=== PATIENT | male | born 1950 | race Caucasian/White ===

== ENCOUNTER 2017-04-13 22:32 | Observation (INO) | payer OTHER ==
[2017-04-13] MEDS ORDERED: HYDROmorphONE/DILAUDID 1 MG/ML SYR IVP ONE (22:54)
[2017-04-13] MEDS ORDERED: NS 1,000 ML IV ONE (22:54)
[2017-04-13] MEDS ORDERED: ONDANSETRON 4 MG/2 ML VIAL IVP ONE (22:54)
--- NOTE | 2017-04-13 22:54 | EDPHY ---
H & P Stated Complaint: central abd pain x3 hours, nausea HPI/ROS: HPI CHIEF COMPLAINT: Nausea, abdominal pain and bloating HISTORY OF PRESENT ILLNESS: This patient very pleasant 66-year-old male no significant medical history does not take any daily medications he presents emergency room 3 hours of sudden onset nausea. Sensation that he wants to vomit. No dizziness no chest pain no shortness of breath. No headache. No neck pain. Persistent nausea feeling without vomiting. Denies diarrhea. He distally does tell me that his mid abdomen feels bloated and has some lower abdominal pain. Very mild 2/10. Reports he did not have any to eat. He took a nap woke up nauseous. Past Medical History: No medical history Past Surgical History: No surgical history Social History: Denies daily use of drugs alcohol tobacco products. Family History: Noncontributory ROS REVIEW OF SYSTEMS: A comprehensive 10 point review of systems is otherwise negative aside from elements mentioned in the history of present illness. Exam Constitutional appears nontoxic, triage nursing summary reviewed, vital signs reviewed, awake/alert. Eyes normal conjunctivae and sclera, EOMI, PERRLA. HENT normal inspection, atraumatic, moist mucus membranes, no epistaxis, neck supple/ no meningismus, no raccoon eyes. Respiratory clear to auscultation bilaterally, normal breath sounds, no respiratory distress, no wheezing. Cardiovascular rate normal, regular rhythm, no murmur, no edema, distal pulses normal. Gastrointestinal soft, non-tender, no rebound, no guarding, normal bowel sounds, no distension, no pulsatile mass. Genitourinary no CVA tenderness. Musculoskeletal no midline vertebral tenderness, full range of motion, no calf swelling, no tenderness of extremities, no meningismus, good pulses, neurovascularly intact. Skin pink, warm, & dry, no rash, skin atraumatic. Neurologic awake, alert and oriented x 3, AAOx3, moves all 4 extremities equally, motor intact, sensory intact, CN II-XII intact, normal cerebellar, normal vision, normal speech. Psychiatric normal mood/affect. Heme/Lymph/Immune no lymphadenopathy. 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 Chest x-ray. CT abdomen pelvis with IV contrast. Re-evaluation: This patient's CT scan is concerning for large gallbladder. Patient had an ultrasound is right upper quadrant shows pericholecystic fluid and sludge. He does have an elevated white blood cell count, elevated LFTs and bilirubin concerning for acute cholecystitis. Patient be given IV Invanz. Patient be consult to Dr. Garcia with General surgery for acute cholecystitis. Patient has nausea epigastric abdominal pain right upper quadrant. Patient be admitted to the hospital for acute cholecystitis. Source: Patient - Personal History Current Tetanus/Diphtheria Vaccine: No Current Tetanus Diphtheria and Acellular Pertussis (TDAP): No - Medical/Surgical History Hx Asthma: No Hx Chronic Respiratory Disease: No Hx Diabetes: No Hx Cardiac Disease: No Hx Renal Disease: No Hx Cirrhosis: No Hx Alcoholism: No Hx HIV/AIDS: No Hx Splenectomy or Spleen Trauma: No Other PMH: denies - Social History Smoking Status: Never smoked Constitutional: Initial Vital Signs Temperature (C) 36.5 C 04/13/17 22:34 Heart Rate 65 04/13/17 22:34 Respiratory Rate 18 04/13/17 22:34 Blood Pressure 151/99 H 04/13/17 22:34 O2 Sat (%) 97 04/13/17 22:34 O2 Delivery Mode Room Air Allergies/Adverse Reactions: No Known Allergies Allergy (Unverified 04/13/17 22:37) Home Medications: Medication Instructions Recorded Herbals/Supplements -Info Only 1 ea PO DAILY 04/14/17 Page-3 Fatty Acids [Fish Oil 1000 1,000 mg PO DAILY 04/14/17 mg (*)] Medical Decision Making - Diagnostics Imaging Results: Imaging Impressions Fluoroscopy 04/14/17 00:00 Impression: ERCP. Possible common hepatic duct stone. Abdomen Ultrasound 04/14/17 01:27 Impression: Negative pelvic sonogram. The study was performed as an emergency on-call case and discussed by telephone with Dr. Braeden Mari at 3:30 AM hrs. The final interpretation is concordant with the original communication. ADDENDUM: 04/14/17 0175 Impression: 1. Suspect acute cholecystitis. Gallbladder sludge and wall thickening with mild pericholecystic fluid. Borderline common bile duct dilatation at 6.0 mm. The study was performed as an emergency on-call case and discussed by telephone with Dr. Braeden Mari at 2:00 AM hrs. The final interpretation is concordant with the original communication. - Data Points Laboratory Results: Laboratory Results 04/13/17 23:07 04/13/17 23:07 Medications Given: Sodium Chloride (Ns) 1,000 mls @ 100 mls/hr IV CONT GELY Stop: 10/11/17 04:13 Last Admin: 04/14/17 16:10 Dose: 1,000 mls Ondansetron HCl (Zofran) 4 mg IVP Q4 PRN PRN Reason: Nausea/Vomiting, Can't Take PO Stop: 10/11/17 04:40 Last Admin: 04/14/17 10:33 Dose: 4 mg Discontinued Medications Hydromorphone HCl (Dilaudid) 0.5 mg IVP EDNOW ONE Stop: 04/13/17 22:55 Last Admin: 04/14/17 07:31 Dose: Not Given Sodium Chloride (Ns) 1,000 mls @ 0 mls/hr IV EDNOW ONE; Wide Open PRN Reason: Protocol Stop: 04/13/17 22:55 Last Admin: 04/13/17 23:08 Dose: 1,000 mls Ertapenem 1 gm/ Sodium (Chloride) 100 mls @ 200 mls/hr IV EDNOW ONE Stop: 04/14/17 02:59 Last Admin: 04/14/17 07:31 Dose: Not Given Lactated Ringer's (Lr) 1,000 mls @ 0 mls/hr IV ONCE ONE PRN Reason: As Directed Stop: 04/14/17 12:26 Last Admin: 04/14/17 15:28 Dose: Not Given Indomethacin (Indocin Rectal) 100 mg CA ONCALL ONE Stop: 04/14/17 13:01 Last Admin: 04/14/17 15:28 Dose: Not Given Ondansetron HCl (Zofran) 4 mg IVP EDNOW ONE Stop: 04/13/17 22:55 Last Admin: 04/13/17 23:08 Dose: 4 mg Ondansetron HCl (Zofran) 2 - 4 mg IVP Q10M PRN PRN Reason: PACU, Nausea/Vomiting Stop: 04/14/17 14:44 Last Admin: 04/14/17 14:14 Dose: 4 mg Promethazine HCl (Phenergan) 6.25 mg IVP ONCE ONE Stop: 04/13/17 23:31 Last Admin: 04/14/17 00:21 Dose: 6.25 mg Promethazine HCl (Phenergan) 6.25 - 12.5 mg IVP Q5M PRN PRN Reason: PACUNausea/Vomiting, Unable PO Stop: 04/14/17 14:44 Last Admin: 04/14/17 14:36 Dose: 6.25 mg Departure - Departure Disposition: [facility] Inpatient Acute Clinical Impression: Acute cholecystitis Condition: Fair
[2017-04-13 23:26] LABS: INR 1.04 (0.83-1.16); PROTIME(PATIENT) 13.5 SEC (12.0-15.0)
[2017-04-13 23:27] LABS: COLOR YELLOW; LEUKOCYTE ESTERASE,URINE NEGATIVE (NEGATIVE); NITRITE,URINE NEGATIVE (NEGATIVE)
[2017-04-13 23:27] LABS: APTT 26.5 SEC (23.0-38.0)
[2017-04-13] MEDS ORDERED: PROMETHAZINE HCL 25 MG/ML INJ IVP ONE (23:30)
--- NOTE | 2017-04-13 23:30 | CPEKG ---
Heart Rate: 67 RR Interval: 896 P-R Interval: 160 QRSD Interval: 110 QT Interval: 420 QTC Interval: 444 P [place]: 73 QRS [place]: 30 T Wave [place]: 21 EKG Severity - ABNORMAL ECG - EKG Impression: SINUS RHYTHM EKG Impression: NONSPECIFIC INTRAVENTRICULAR CONDUCTION DELAY Electronically Signed By: Aravind Arellano 14-Apr-2017 07:17:35
[2017-04-13 23:33] LABS: ALANINE AMINOTRANSFERASE 164 IU/L (21-72); ALBUMIN 4.5 g/dL (3.5-5.0); ALKALINE PHOSPHATASE 108 IU/L (38-126); ANION GAP 13 mEq/L (8-16); ASPARTATE AMINOTRANSFERASE 257 IU/L (17-59); BILIRUBIN,TOTAL 3.8 mg/dL (0.1-1.4); BILIRUBIN-CONJUGATED 1.6 mg/dL (0.0-0.5); BILIRUBIN-UNCONJUGATED 2.2 mg/dL (0.0-1.1); CALCIUM 9.9 mg/dL (8.5-10.4); CARBON DIOXIDE 28 mEq/l (22-31); CHLORIDE 98 mEq/L (97-110); GLOMERULAR FILTRATION RATE > 60; GLUCOSE 154 mg/dL (70-100); POTASSIUM 4.4 mEq/L (3.5-5.2); SODIUM 139 mEq/L (134-144); TOTAL PROTEIN 7.4 g/dL (6.3-8.2)
[2017-04-13] MEDS ORDERED: IOPAMIDOL (ISOVUE-300) 100 ML BTL ONE (23:37)
[2017-04-13 23:39] LABS: AMORPHOUS PRESENT /hpf (NONE-1+); RBC,URINE 15-25 /hpf (0-3)
[2017-04-13 23:40] LABS: WBC,URINE NONE SEEN /hpf (0-3)
[2017-04-13 23:46] LABS: TROPONIN I < 0.012 ng/mL (0.000-0.034)
[2017-04-13 23:47] LABS: % IMMATURE GRANULYOCYTES 0.7 % (0.0-1.1); ABSOLUTE IMMATURE GRANULOCYTES 0.12 10^3/uL (0.00-0.10); ADD DIFF? NO; ADD MORPH? NO; ADD SCAN? NO; ATYPICAL LYMPHOCYTE FLAG 0 (0-99); FRAGMENT RBC FLAG 0 (0-99); HEMATOCRIT 50.9 % (40.0-51.0); HEMOGLOBIN 18.6 g/dL (13.7-17.5); LEFT SHIFT FLG 10 (0-99); LIPEMIA HEMOLYSIS FLAG 90 (0-99); MEAN CELL HEMOGLOBIN 32.6 pg (27.9-34.1); MEAN CELL HEMOGLOBIN CONCENTR. 36.5 g/dL (32.4-36.7); MEAN CELL VOLUME 89.3 fL (81.5-99.8); PLATELET CLUMPS FLAG 0 (0-99); PLATELET COUNT 167 10^3/uL (150-400); RED CELL DISTRIBUTION WIDTH 13.4 % (11.5-15.2)
[2017-04-14] MEDS ORDERED: PROMETHAZINE HCL 25 MG/ML INJ ONE ×2 (01:12→14:25)
[2017-04-14] MEDS ORDERED: ERTAPENEM 1 GM in NS 100 ML IV ONE (02:30)
[2017-04-14] MEDS ORDERED: NS 1,000 ML IV SCH (04:14)
--- NOTE | 2017-04-14 04:38 | GHP ---
[f rep st] HISTORY AND PHYSICAL DATE OF ADMISSION: 04/13/2017 CHIEF COMPLAINT: Choledocholithiasis. HISTORY OF PRESENT ILLNESS: A 66-year-old man who presented to the emergency room due to nausea and then vomiting. He has never had these symptoms before. The pain was so severe he asked his neighbor to drive him to the ER. In the ER , he had a CT scan obtained of his abdomen and pelvis that showed a thickened distal esophagus and thickened gallbladder with pericholecystic fluid. He had a followup ultrasound that showed thickened gallbladder with pericholecystic fluid. His laboratory work was significant for a white count of 17,000 and an elevated bilirubin. Note, the computers are on downtime at this point so reports are available through the ER physician. PAST MEDICAL HISTORY: None. PAST SURGICAL HISTORY: None. SOCIAL HISTORY: He is very healthy. Denies tobacco or alcohol use. He is in a housing center for over [place]. FAMILY HISTORY: No family history of gallstone. REVIEW OF SYSTEMS: A 10-point review of systems is negative except per HPI. PHYSICAL EXAMINATION: VITALS: Reviewed. GENERAL: Pleasant, well-nourished, well-groomed man sitting up on gurney and at bedside. HEENT: Normocephalic. No gross hearing deficits. Mucous membranes moist. Pupils equal and round. No scleral icterus. LUNGS: Clear to auscultation bilaterally. No increased work of breathing. CARDIAC: Regular rate. No peripheral edema. ABDOMEN: Bowel sounds present. Soft and mildly tender. There is no rebound tenderness and no abdominal incisions. SKIN: Warm and dry. MUSCULOSKELETAL: Normal nails. PSYCH: Mood and affect normal. NEURO: Grossly intact. IMPRESSION AND PLAN: The patient is a 66-year-old with choledocholithiasis admitted to the hospital. He has been given Invanz in the ER. Will recheck his labs in the morning. If possible, we may need to consult GI to consider ERCP/EGD. We may need to discuss laparoscopic cholecystectomy. The patient would like to think about a cholecystectomy as he has never had any medical problems. He is "not eager to lose his gallbladder". He asked if I had ever seen any alternatives work and I reported that he is able to have antibiotics and if he improves, he can wait and see if this happens again. We also discussed the risk that sometimes people can actually develop infection in their blood streams from waiting as well. He asked what I thought he should do and I repeated that I thought we should repeat labs in the morning and either proceed with ERCP and/or laparoscopic cholecystectomy. He was also concerned about insurance and I informed him that he came in through the emergency room and that admission was necessary. I put him down as observation at this point. Repeat labs and repeat discussion in am /[id number]/MODL MTDD
[2017-04-14] MEDS ORDERED: ACETAMINOPHEN 325 MG TAB PO PRN (04:41)
[2017-04-14] MEDS ORDERED: ONDANSETRON 4 MG/2 ML VIAL IVP PRN ×2 (04:41→13:44)
[2017-04-14 05:30] LABS: % IMMATURE GRANULYOCYTES 0.4 % (0.0-1.1); ABSOLUTE IMMATURE GRANULOCYTES 0.06 10^3/uL (0.00-0.10); ADD DIFF? NO; ADD MORPH? NO; ADD SCAN? NO; ATYPICAL LYMPHOCYTE FLAG 0 (0-99); FRAGMENT RBC FLAG 0 (0-99); HEMATOCRIT 44.7 % (40.0-51.0); HEMOGLOBIN 16.3 g/dL (13.7-17.5); LEFT SHIFT FLG 0 (0-99); LIPEMIA HEMOLYSIS FLAG 90 (0-99); MEAN CELL HEMOGLOBIN 32.3 pg (27.9-34.1); MEAN CELL HEMOGLOBIN CONCENTR. 36.5 g/dL (32.4-36.7); MEAN CELL VOLUME 88.7 fL (81.5-99.8); PLATELET CLUMPS FLAG 0 (0-99); PLATELET COUNT 154 10^3/uL (150-400); RED BLOOD CELL COUNT 5.04 10^6/uL (4.40-6.38); RED CELL DISTRIBUTION WIDTH 13.2 % (11.5-15.2)
[2017-04-14 06:04] LABS: ALANINE AMINOTRANSFERASE 363 IU/L (21-72); ALBUMIN 3.1 g/dL (3.5-5.0); ALKALINE PHOSPHATASE 80 IU/L (38-126); ANION GAP 8 mEq/L (8-16); ASPARTATE AMINOTRANSFERASE 420 IU/L (17-59); BILIRUBIN,TOTAL 5.6 mg/dL (0.1-1.4); CALCIUM 8.7 mg/dL (8.5-10.4); CARBON DIOXIDE 26 mEq/l (22-31); CHLORIDE 103 mEq/L (97-110); GLOMERULAR FILTRATION RATE > 60; GLUCOSE 122 mg/dL (70-100); POTASSIUM 4.1 mEq/L (3.5-5.2); SODIUM 137 mEq/L (134-144); TOTAL PROTEIN 5.6 g/dL (6.3-8.2)
[2017-04-14 06:12] LABS: BILIRUBIN-CONJUGATED 2.9 mg/dL (0.0-0.5); BILIRUBIN-UNCONJUGATED 2.7 mg/dL (0.0-1.1)
--- NOTE | 2017-04-14 08:39 | SOAPPROG ---
<Ami Montelongo - Last Filed: 04/14/17 08:40> SOAP Progress Note Assessment/Plan: Assessment: 66yo M admitted with choledocholithiasis Total bilirubin climbing ERCP today by Dr. Hogan Clear liquids after ERCP, then NPO after midnight Marbella pennington likely tomorrow Seen c Dr. Garcia S: severe hiccups this morning. Did no sleep well overnight O: laying in bed, uncomfortable, hiccuping frequently No increased WOB. CTAB anteriorly RRR Abd TTP, no rebound or guarding. +BS Objective: Vital Signs Temp Pulse Resp BP Pulse Ox 36.5 C 64 16 138/91 H 98 04/13/17 22:34 04/14/17 00:00 04/14/17 00:00 04/14/17 00:00 04/14/17 00:00 Laboratory Results 04/14/17 05:24 04/14/17 05:24 PT 13.5 SEC (12.0-15.0) 04/13/17 23:07 INR 1.04 (0.83-1.16) 04/13/17 23:07 ICD10 Worksheet Patient Problems: Problems Problem Status Onset Choledocholithiasis Acute <Trisha Garcia S - Last Filed: 04/14/17 14:39> SOAP Progress Note Assessment/Plan: Assessment: Bile duct cleared by Dr. Hogan. Marbella pennington in am. Risks and benefits discussed Plan: 04/14/17 14:38 Objective: Vital Signs Temp Pulse Resp BP Pulse Ox 36.6 C 65 15 131/88 H 100 04/14/17 14:01 04/14/17 13:05 04/14/17 14:01 04/14/17 14:01 04/14/17 14:01 Laboratory Results 04/14/17 05:24 04/14/17 05:24 PT 13.5 SEC (12.0-15.0) 04/13/17 23:07 INR 1.04 (0.83-1.16) 04/13/17 23:07 ICD10 Worksheet - ICD10 Problem Qualifiers (1) Choledocholithiasis
[2017-04-14] MEDS ORDERED: IOTHALAMATE MEG (CONRAY) 50 ML VIAL IV ONE (11:43)
[2017-04-14] MEDS ORDERED: LR 1,000 ML IV ONE (12:25)
--- NOTE | 2017-04-14 12:59 | PDANEPAE ---
ANE History of Present Illness here for ERCP ANE Past Medical History - Cardiovascular History Hx Hypertension: No Hx Arrhythmias: No Hx Chest Pain: No Hx Coronary Artery / Peripheral Vascular Disease: No Hx CHF / Valvular Disease: No Hx Palpitations: No - Pulmonary History Hx COPD: No Hx Asthma/Reactive Airway Disease: No Hx Recent Upper Respiratory Infection: No Hx Oxygen in Use at Home: No Hx Sleep Apnea: Yes Sleep Apnea Screening Result - Last Documented: Positive - Endocrine History Hx Diabetes: No Hypothyroid: No Hyperthyroid: No Obesity: no - Renal History Hx Renal Disorders: No - Liver History Hx Hepatic Disorders: No - Neurological & Psychiatric Hx Hx Neurological and Psychiatric Disorders: No - Cancer History Hx Cancer: No - Congenital Disorder History Hx Congenital Disorders: No - Chronic Pain History Chronic Pain: No ANE Review of Systems Review of systems is: negative Review of Systems: - Exercise capacity Exercise capacity: >=4 METS - Systems Constitutional: Reports: no symptoms EENMT: Reports: no symptoms Cardiac: Reports: no symptoms Respiratory: Reports: no symptoms Gastrointestinal: Reports: nausea Genitourinary: Reports: no symptoms Muscolosketal: Reports: no symptoms Skin: Reports: no symptoms Neurological: Reports: no symptoms ANE Patient History - Allergies Allergies/Adverse Reactions: No Known Allergies Allergy (Unverified 04/13/17 22:37) - Home Medications Home medications: home medication list seen and reviewed Home Medications: Herbals/Supplements -Info Only 1 ea PO DAILY 04/14/17 [Last Taken Unknown] [place]-3 Fatty Acids [Fish Oil 1000 mg (*)] 1,000 mg PO DAILY 04/14/17 [Last Taken Unknown] - NPO status NPO Status: no food or drink >8 hours NPO Since - Liquids (Date): 04/14/17 NPO Since - Liquids (Time): 00:00 NPO Since - Solids (Date): 04/14/17 NPO Since - Solids (Time): 00:00 - Anes Hx Anes Hx: no prior problems - Smoking Hx Smoking Status: Never smoked ANE Labs/Vital Signs - Labs Result Diagrams: 04/14/17 05:24 04/14/17 05:24 - Vital Signs Blood Pressure: 122/60 Heart Rate: 65 Respiratory Rate: 16 O2 Sat (%): 95 Height: 180.34 cm Weight: 74.84 kg ANE Physical Exam - Airway Neck exam: FROM Mallampati Score: Class 1 Mouth exam: normal dental/mouth exam - Pulmonary Pulmonary: no respiratory distress - Cardiovascular Cardiovascular: regular rate and rhythym - ASA Status ASA Status: I ANE Anesthesia Plan Anesthesia Plan: general endotracheal anesthesia
[2017-04-14] MEDS ORDERED: INDOMETHACIN 50 MG SUPP PR ONE (13:00)
[2017-04-14] MEDS ORDERED: PROPOFOL/EMULSION 500 MG/50 ML BOTTLE IV ONE (13:03)
[2017-04-14] MEDS ORDERED: ALBUTEROL 3 ML DEYVIAL IH PRN (13:44)
[2017-04-14] MEDS ORDERED: NALOXONE HCL 0.4 MG/ML INJ IVP PRN (13:44)
[2017-04-14] MEDS ORDERED: fentaNYL 100 MCG/2 ML INJ IVP PRN (13:44)
--- NOTE | 2017-04-14 13:57 | POSTOPPROG ---
Post Op Note Date of Operation: 04/14/17 Surgeon: Rod Hogan Anesthesia: GET(General Endotracheal) Pre-op Diagnosis: CBD obstruction Post-op Diagnosis: same Indication: same Procedure: ERCP Findings: one filling defect at start of exam, none afterwards. Inf/Abcess present in the surg proc area at time of surgery?: No EBL: Minimal
[2017-04-14] MEDS ORDERED: ONDANSETRON 4 MG/2 ML VIAL ONE (14:13)
[2017-04-14] MEDS: PROMETHAZINE HCL 25 MG/ML INJ IVP PRN ×2 (14:28→14:36)
--- NOTE | 2017-04-14 14:30 | POSTANESTH ---
Post Anesthetic Evaluation Cardiovascular Status: Normal, Stable Respiratory Status: Normal, Stable Level of Consciousness/Mental Status: Can Participate in Eval Pain Control: Adequate, Prn Tx Ordered Nausea/Vomiting Control: Inadeq, Add Tx Reqired (zofran and phenergan given for nausea) Complications Possibly Related to Anesthesia: None Noted
--- NOTE | 2017-04-14 23:53 | GPN ---
[f rep st] PROCEDURE NOTE PROCEDURE: Endoscopic retrograde cholangiopancreatography with sphincterotomy and common bile duct s weep. INDICATIONS: This patient is a 66-year-old male who presents with signs and symptoms of common duct obstruction. He also had CT scan showing possible distal esophageal pathology, although he has no hi story of reflux symptoms. ERCP is being requested to clear the common bile duct and evaluate the eso phagus. DESCRIPTION OF PROCEDURE: After proper consent was obtained, the patient was placed under general an esthesia and put in the swimmer's position. Video duodenoscope was introduced through the mouth and into the esophagus. Using maximum deflection , I was able then to visualize the distal esophagus in 360-degree view, and photographs were taken, s howing no evidence of Thomas's esophagus but a small amount of erosive esophagitis. The stomach was entered and appeared normal. The duodenum was entered and appeared normal. The ampulla of Vater was identified; it appeared atraumatic. Cannulation of the common duct was obtained, and contrast injection showed one filling defect in a du ct dilated to approximately 9 mm. Sphincterotomy was performed to 11 mm, no bleeding seen. Using Seldinger technique, a 9-12 mm extraction balloon was placed into the common duct, and four swe eps were performed. At the last sweep, a pressure injection was performed with the duct occluded by the balloon, showing no filling defects. At this point, the instrument was removed. The patient tolerated the procedure well and was returned to recovery in stable condition. RECOMMENDATIONS: 1. Surgical considerations as per Dr. Garcia. 2. If the patient has symptomatic reflux, would treat with appropriate acid suppression therapy. /[id number]/MODL
[2017-04-15 05:25] LABS: % IMMATURE GRANULYOCYTES 0.6 % (0.0-1.1); ABSOLUTE IMMATURE GRANULOCYTES 0.08 10^3/uL (0.00-0.10); ADD DIFF? NO; ADD MORPH? NO; ADD SCAN? NO; ATYPICAL LYMPHOCYTE FLAG 0 (0-99); FRAGMENT RBC FLAG 0 (0-99); HEMATOCRIT 41.7 % (40.0-51.0); HEMOGLOBIN 15.2 g/dL (13.7-17.5); LEFT SHIFT FLG 0 (0-99); LIPEMIA HEMOLYSIS FLAG 90 (0-99); MEAN CELL HEMOGLOBIN 32.6 pg (27.9-34.1); MEAN CELL HEMOGLOBIN CONCENTR. 36.5 g/dL (32.4-36.7); MEAN CELL VOLUME 89.5 fL (81.5-99.8); MEAN PLATELET VOLUME 12.7 fL (8.7-11.7); PLATELET CLUMPS FLAG 10 (0-99); PLATELET COUNT 136 10^3/uL (150-400); RED BLOOD CELL COUNT 4.66 10^6/uL (4.40-6.38); RED CELL DISTRIBUTION WIDTH 13.6 % (11.5-15.2)
[2017-04-15 05:43] LABS: ALBUMIN 2.8 g/dL (3.5-5.0); BILIRUBIN,TOTAL 2.9 mg/dL (0.1-1.4); BILIRUBIN-CONJUGATED 1.1 mg/dL (0.0-0.5); BILIRUBIN-UNCONJUGATED 1.8 mg/dL (0.0-1.1); TOTAL PROTEIN 4.6 g/dL (6.3-8.2)
[2017-04-15] MEDS ORDERED: ceFAZolin 2 GM/DEXTROSE 100 ML IV ONE (07:15)
[2017-04-15] MEDS ORDERED: ceFAZolin 2 GM in D5W 100 ML IV ONE (07:15)
[2017-04-15 07:58] VITALS: BP 113/76; PULSE 64; RESP 20; TEMP 98.6; O2SAT 93
--- NOTE | 2017-04-15 09:58 | SOAPPROG ---
SOAP Progress Note Assessment/Plan: Assessment: HD # 3 for choledocolithiasis S/P ERCP Patient decided he did not want to have lap cholecystectomy. I expressed the importance of lap gorge and that he could have problems again Has a degree of post ERCP pancreatitis. COLE Guzman Will see how he feels this afternoon and possible discharge today or tomorrow S: Does not want surgery. Feels well Plan: 04/14/17 14:38 04/15/17 09:56 Objective: Vital Signs Temp Pulse Resp BP Pulse Ox 37.0 C 64 20 113/76 93 04/15/17 07:56 04/15/17 07:56 04/15/17 07:56 04/15/17 07:56 04/15/17 07:56 Laboratory Results 04/15/17 05:02 04/14/17 05:24 04/14/17 04/15/17 04/16/17 05:59 05:59 05:59 Intake Total 2460 Output Total 900 Balance 1560 PT 13.5 SEC (12.0-15.0) 04/13/17 23:07 INR 1.04 (0.83-1.16) 04/13/17 23:07 Physical Exam - Physical Exam General Appearance: WD/WN, alert, no apparent distress EENT: PERRL/EOMI, normal ENT inspection, No scleral icterus (R), No scleral icterus (L), No hearing deficit Respiratory: lungs clear, normal breath sounds Cardiac/Chest: regular rate, rhythm, No edema Abdomen: normal bowel sounds, non-tender, soft Skin: normal color, warm/dry Extremities: normal range of motion, non-tender Neuro/Psych: no motor/sensory deficits, alert, normal mood/affect ICD10 Worksheet Patient Problems: Problems Problem Status Onset Acute cholecystitis Acute Choledocholithiasis Acute - ICD10 Problem Qualifiers (1) Choledocholithiasis
--- NOTE | 2017-04-15 16:11 | GDS ---
[f rep st] DISCHARGE SUMMARY Date of Admission: April 13, 2017 Date of Discharge: April 15, 2017 REASON FOR ADMISSION: Mr. Garcia is a 66 year old man who presented to the emergency room on 04/13/2017 due to nausea, vomiting and abdominal pain. He had workup in the ER which included a CT scan. This showed slightly thickened distal esophagus. He also had an ultrasound performed of his right upper quadrant which showed pericholecystic fluid gallstones and a thickened gallbladder. His LFTs and white blood cell count were elevated in the ER. PRIMARY DIAGNOSIS: Choledocholithiasis. SECONDARY DIAGNOSES: None. HOSPITAL COURSE: The patient was admitted from the ER on 04/13. His LFTs were more elevated on hospital day 2. I consulted Dr. Hogan andan ERCP was performed. On hospital day 3. The patient called early refusing laparoscopic cholecystectomy. In addition his lipase was slightly elevated. He had no pain. His diet was slowly advanced. He wished to be discharged home CONDITIONS ON DISCHARGE: The patient is ambulatory, pain well-controlled and tolerates diet. DISCHARGE MEDICATIONS: Patient is being discharged with a prescription for levofloxacin 500 mg daily X 6 days. FOLLOWUP INSTRUCTIONS: The patient will follow up with Dr. Garcia on 04/22 at 1: 30 p.m. and will have labs done between 04/21 and 04/22/2017. Followup labs will include a CBC, LFTs and lipase. We had a discussion and I told him that laparoscopic cholecystectomy was indicated. He will go home and think about his options. He will return to the emergency room if he has fevers, chills, inability to tolerate diet, increasing abdominal pain or other concerns /[id number]/MODL MTDD
--- NOTE | 2017-04-18 17:06 | ASDISCHSUM ---
Discharge Information Plan Status:Home with Home Health Medically Cleared to Leave:04/15/2017 Discharge Date:04/15/2017 04:00 PM D/C Disposition:Home Health Service [facility] D/C Disposition:Home, Routine, Self-Care Projected Discharge Date:04/15/2017 12:00 AM Transportation at D/C: Discharge Delay Reason: Follow-Up Date:04/15/2017 12:00 AM Discharge Slot: Final Diagnosis: Placement Information Patient Contact Information Contact Name:FLAQUITA Relationship:Other Address:[address] [place] [address] City:[place] Alternate Phone: State/Zip Code:[place] [address] Email: Financial Information Financial Class:Medicare Advantage Plans Primary Plan Desc:[facility] [employer] PLANS Primary Plan Number:[id number] Secondary Plan Desc: Secondary Plan Number: Assessment Information Intervention Information Intervention Type:*MARTINEZ-Signed Date of Service:04/15/2017 10:14 AM Patient Type:Observation Staff Member:Floresita Waters Hours: Discipline: Severity: Comment:
== END 2017-04-15 16:00 | disposition home or self-care (01) ==
LOC: F3E 04-14 03:07
PROVIDERS: ADMIT Surgery; ATTEND Surgery
PROC: 0FC98ZZ Extirpation of Matter from Common Bile Duct, Via Natural or Artificial Opening Endoscopic (ICD-10-PCS; principal; 2017-04-13)
PROC: 0F9C8ZZ Drainage of Ampulla of Vater, Via Natural or Artificial Opening Endoscopic (ICD-10-PCS; principal; 2017-04-13)
PROC: 3E0337Z Introduction of Electrolytic and Water Balance Substance into Peripheral Vein, Percutaneous Approach (ICD-10-PCS; 2017-04-13)
DX: K80.50 Calculus of bile duct without cholangitis or cholecystitis without obstruction (principal); E86.9 Volume depletion, unspecified
CPT/HCPCS: 43262; 43264; 71010; 74177; 76001; 76705; 93005; 96361; 96374; 96375; 96376; 99285; G0378; J1170; J1335; J2405; J2550; J2704; Q9961; Q9967; J0690

== ENCOUNTER → 2017-11-16 | Outpatient (CLI) | payer OTHER | LOC: BMCIMAGING 08:50 | PROVIDERS: ATTEND Family Medicine | DX: Z09 Encounter for follow-up examination after completed treatment for conditions other than malignant neoplasm (principal); K76.9 Liver disease, unspecified ==